=== PATIENT | female | born 1985 | race Caucasian/White ===

== ENCOUNTER 2022-06-29 12:00 | Inpatient (IN) | payer OTHER ==
[~2022-06-29] VITALS: Ht 157.5 cm; Wt 111.6 kg
[2022-07-02] MEDS ORDERED: LR 1,000 ML IV ONE (11:00)
[2022-07-02] MEDS ORDERED: CEFAZOLIN 2 GM IVPB PREMIX 50 ML IV ONE (11:00)
[2022-07-02 11:08] VITALS: BP_SYST 121
[2022-07-02 11:11] LABS: BILIRUBIN,URINE NEGATIVE (NEGATIVE); BLOOD, URINE NEGATIVE (NEGATIVE); CLARITY/URINE CLEAR (CLEAR); COLOR,URINE YELLOW (YELLOW); GLUCOSE,URINE NEGATIVE (NEGATIVE); KETONES,URINE NEGATIVE (NEGATIVE); LEUKOCYTE ESTERASE ,URINE 3+ (NEGATIVE); NITRITE, URINE NEGATIVE (NEGATIVE); PH,URINE 6.5 (5.0-8.0); PROTEIN URINE TRACE (NEGATIVE); UROBILINOGEN,URINE 0.2 (0.2-1.0)
[2022-07-02 11:25] LABS: BASOPHILS % (AUTO) 0.2 % (0.0-2.0); EOSINOPHILS # (AUTO) 0.1 K/uL (0.0-0.4); EOSINOPHILS % (AUTO) 0.6 % (0.0-4.0); HEMATOCRIT 34.1 % (36-48); LYMPHOCYTES # (AUTO) 2.8 K/uL (1.0-5.5); LYMPHOCYTES % (AUTO) 20.3 % (20.5-51.5); MEAN CORPUSCULAR HEMOGLOBIN 26 pg (27-31); MEAN CORPUSCULAR HGB CONC 32 % (32-36); MEAN CORPUSCULAR VOLUME 80 fL (79.0-98.0); MONOCYTES # (AUTO) 0.9 K/uL (0.0-1.0); MONOCYTES % (AUTO) 6.6 % (1.7-9.3); NEUTROPHILS # (AUTO) 9.9 K/uL (1.8-7.7); NEUTROPHILS % (AUTO) 72.3 % (40.0-70.0); PLATELET COUNT (AUTO) 369 K/uL (130-430); RED BLOOD CELL COUNT(AUTO) 4.26 MIL/uL (4.2-6.2); RED CELL DISTRIBUTION WIDTH 17.1 % (9.0-15.0); WHITE BLOOD COUNT (AUTO) 13.6 K/uL (4.8-10.8)
[2022-07-02 11:48] LABS: BACTERIA,URINE FEW /HPF (None Seen)
[2022-07-02] MEDS ORDERED: OXYTOCIN/0.9 % SODIUM CHLORIDE 1,000 ML IV ONE (12:00)
[2022-07-02] MEDS ORDERED: LANOLIN 7 GM OINT. TP PRN (12:00)
[2022-07-02] MEDS ORDERED: BISACODYL 10 MG/SUPPOSITORY RC PRN (12:00)
[2022-07-02] MEDS ORDERED: KETOROLAC TROMETHAMINE 30 MG VIAL IVP PRN (12:00)
[2022-07-02] MEDS ORDERED: ANUSOL 1 EA SUPP.RECT (PREPARATION H) RC PRN (12:00)
[2022-07-02] MEDS ORDERED: LR 1,000 ML IV SCH (12:00)
[2022-07-02] MEDS ORDERED: LR 1,000 ML IV.SOLN IV ONE (12:15)
[2022-07-02] MEDS ORDERED: NS IRRIG SOLN 1000 ML IR ONE (12:15)
[2022-07-02] MEDS ORDERED: BUPIVACAINE /DEX PF 0.75% SPINAL 2 ML AMP INJ ONE (12:15)
[2022-07-02] MEDS ORDERED: WATER FOR IRRIGATION,STERILE 1,000 ML IRRIG.SOLN IR ONE (12:15)
[2022-07-02] MEDS ORDERED: MORPHINE SULFATE 10MG/10ML PF AMP ONE (12:15)
[2022-07-02] MEDS ORDERED: OXYTOCIN 10 UNIT/ML VIAL ONE (12:15)
[2022-07-02] MEDS ORDERED: ONDANSETRON HCL 4 MG/2 ML VIAL ONE (12:15)
[2022-07-02] MEDS ORDERED: METHYLERGONOVINE MALEATE 0.2 MG/ML AMP ONE (12:54)
[2022-07-02 13:42] VITALS: BP_SYST 106
[2022-07-02] MEDS ORDERED: TEMAZEPAM 15 MG CAPSULE PO PRN (21:00)
[2022-07-02] MEDS: DOCUSATE SODIUM 100 MG CAPSULE PO SCH (21:00)
[2022-07-02] MEDS: SIMETHICONE 80 MG TAB.CHEW PO PRN (22:09)
[2022-07-03] MEDS: IBUPROFEN 800 MG TABLET PO PRN ×4 (00:23→18:01)
[2022-07-03] MEDS: OXYCODONE/ACETAMINOPHEN 5-325 TABLET PO PRN ×4 (04:51→23:17)
[2022-07-03] MEDS: SIMETHICONE 80 MG TAB.CHEW PO PRN ×3 (04:51→23:17)
[2022-07-03] MEDS: CEFAZOLIN 1 GM IVPB PREMIX 50 ML IV SCH ×3 (05:34→18:02)
[2022-07-03 07:53] LABS: BASOPHILS % (AUTO) 0.2 % (0.0-2.0); EOSINOPHILS # (AUTO) 0.1 K/uL (0.0-0.4); EOSINOPHILS % (AUTO) 0.3 % (0.0-4.0); HEMATOCRIT 26.5 % (36-48); HEMOGLOBIN 8.6 g/dL (12.0-16.0); LYMPHOCYTES # (AUTO) 3.5 K/uL (1.0-5.5); LYMPHOCYTES % (AUTO) 21.4 % (20.5-51.5); MEAN CORPUSCULAR HEMOGLOBIN 26 pg (27-31); MEAN CORPUSCULAR HGB CONC 32 % (32-36); MEAN CORPUSCULAR VOLUME 81 fL (79.0-98.0); MONOCYTES # (AUTO) 1.2 K/uL (0.0-1.0); MONOCYTES % (AUTO) 7.2 % (1.7-9.3); NEUTROPHILS # (AUTO) 11.7 K/uL (1.8-7.7); NEUTROPHILS % (AUTO) 70.9 % (40.0-70.0); PLATELET COUNT (AUTO) 328 K/uL (130-430); RED BLOOD CELL COUNT(AUTO) 3.27 MIL/uL (4.2-6.2); RED CELL DISTRIBUTION WIDTH 17.3 % (9.0-15.0); WHITE BLOOD COUNT (AUTO) 16.5 K/uL (4.8-10.8)
[2022-07-03] MEDS: DOCUSATE SODIUM 100 MG CAPSULE PO SCH (20:13)
[2022-07-03] MEDS: SENNOSIDES/DOCUSATE SODIUM 1 TAB TABLET(SENOKOT-S) PO SCH (20:13)
[2022-07-04] MEDS: SIMETHICONE 80 MG TAB.CHEW PO PRN ×5 (04:04→21:58)
[2022-07-04] MEDS: OXYCODONE/ACETAMINOPHEN 5-325 TABLET PO PRN ×4 (05:19→20:58)
[2022-07-04] MEDS: DOCUSATE SODIUM 100 MG CAPSULE PO SCH ×2 (09:00→20:13)
[2022-07-04] MEDS: SENNOSIDES/DOCUSATE SODIUM 1 TAB TABLET(SENOKOT-S) PO SCH (20:12)
[2022-07-04] MEDS ORDERED: DIPHENHYDRAMINE HCL 25 MG CAPSULE PO PRN (21:30)
[2022-07-04] MEDS ORDERED: DIPHENHYDRAMINE HCL 12.5 MG/5 ML UDC PO PRN (21:30)
[2022-07-05] MEDS: IBUPROFEN 800 MG TABLET PO PRN ×3 (00:01→13:36)
[2022-07-05] MEDS: SIMETHICONE 80 MG TAB.CHEW PO PRN ×5 (01:02→13:36)
[2022-07-05] MEDS: DOCUSATE SODIUM 100 MG CAPSULE PO SCH (09:08)
--- NOTE | 2022-07-06 14:50 | NUR ---
Sales Trainer re: post depression Telephone call held with the patient to discuss the consult related to post depression. The patient was D/C, however manager social responsibility contacted her on Wednesday morning. I called and introduces myself to the patient. I congratulated her on the of her baby and explained why I was calling. The patient was in agreement to speaking to me. I completed a social service assessment with her. Per patient, she resides at home with her , 4 year old son, and the new baby. She states her biggest support is her . The mother states she had a baby shower and received all of the essentials for the baby. She receives no government assistance. She is receiving [employer] benefits at this time. I inquired with the patient about her familiarity with Post Depression and if se had ever experienced it before. Per patient, she is familiar with it, as her sister and mother both experienced it. The patient states she did not experience PPD with her first child. She states she is receiving family support in areas such as home cleaning services, her older son, and meal prepping for the family. I inquired about support services and her interest in them. The patient is interested in support services. I discussed individual therapy, group therapy, the home visiting program, through [facility], and also utilizing the resources available through her insurance company. The mother was in agreement with all of those services. I advised her that I would place resource materials in the mail to her, as well as complete the [facility] Home Visiting program and call her insurance company. A referral was submitted to [facility] program. I called and spoke with ROSE Massey from [employer] who advised that the patient would need to call [facility] located [facility] to request the mental health number for services. Mental health is a "carve out for medical, therefore HCP does not manage mental health needs per Shilpa. I list of local therapist were also printed and mailed to the mother. [facility] Visiting program: [phone]; [phone] ROSE Massey from [facility]: [phone]
== END 2022-07-05 15:30 | disposition home or self-care (01) | DRG 787 ==
LOC: SPU 07-02 09:29
PROVIDERS: ADMIT Obstetrics & Gynecology; ATTEND Obstetrics & Gynecology
PROC: 10D00Z1 Extraction of Products of Conception, Low, Open Approach (ICD-10-PCS; principal; 2022-07-02 12:20)
DX: O34.211 Maternal care for low transverse scar from previous cesarean delivery (principal); R71.0 Precipitous drop in hematocrit; Z37.0 Single live birth; Z3A.39 39 weeks gestation of pregnancy; Z20.822 Contact with and (suspected) exposure to COVID-19
CPT/HCPCS: 36415; 81000; 85025; 86592; 86886; 86900; 86901; 94760; J0690; J2210; J2274; J2405; J2590; J3490; J7120